=== PATIENT | female | born 1960 | race Caucasian/White ===

== ENCOUNTER → 2018-01-15 13:12 | Outpatient (CLI) | payer OTHER, SELFPAY ==
--- NOTE | 2018-01-15 | DI.MRI.S_ITS ---
PROCEDURE: MR HEAD/BRAIN WO/W CON INDICATIONS: FACIAL SWELLING/FACIAL TINGLING TECHNIQUE: Noncontrast sagittal T1 spin echo, axial T2 fast spin echo, axial FLAIR, axial gradient echo, axial diffusion and ADC through the brain. Axial/sagittal/coronal 3-D CISS, thin-slice axial T1 spin echo with fat saturation through the skull base. After the administration of contrast, axial and coronal thin-slice T1 spin echo with fat saturation through the skull base, axial T1 spin echo with fat saturation through the brain. COMPARISON: None. FINDINGS: Image quality: Excellent. Trigeminal nerves: No inflammation or mass is seen. No adjacent aneurysm is identified. CSF spaces: Ventricles are normal in size and shape. No extra-axial fluid collections. Basal cisterns are patent. Brain: No intracranial bleeds or mass effects. No abnormal intracranial enhancement. Diffusion weighted images show no acute ischemic insults. Vill[place]-white matter interface is intact. Brainstem is normal. Normal intravascular flow voids are present. Skull and face: Calvarial marrow signal is normal. Orbits appear normal. Sinuses: Sinuses and mastoids appear clear except for concentric moderate mucosal thickening involving the maxillary sinuses slightly greater on the left than the right. No acute-appearing air-fluid level is associated, however.. IMPRESSION: No sign of skull base inflammation or mass, no cranial nerve lesion is identified. Concentric mucosal thickening is prominent involving the maxillary sinuses bilaterally slightly greater on the left than the right but there is no air-fluid level. Dictated by: Francesco Braga M.D. on 01/15/2018 at 14:25 Approved by: Francesco Braga M.D. on 01/15/2018 at 14:43
== END ==
PROVIDERS: Visit Provider Family Medicine
DX: R22.0 Localized swelling, mass and lump, head (principal); R20.2 Paresthesia of skin
CPT/HCPCS: 70553; A9579

== ENCOUNTER → 2021-04-23 07:33 | Outpatient (CLI) | payer OTHER, SELFPAY ==
[2021-04-23 08:27] LABS: Add Manual Diff / Slide Review NO; Basophils Absolute Auto 100 /uL (0-100); Basophils Percent Auto 1.2 % (0-2); Eosinophils Absolute Auto 200 /uL (0-450); Eosinophils Percent Auto 5.1 % (2-4); Hemoglobin 13.8 g/dL (12.0-16.0); Lymphocytes Absolute Auto 2100 /uL (1100-4500); Lymphocytes Percent Auto 43.8 % (25-40); Mean Corpuscular HGB Conc 33.7 % (30-36); Mean Corpuscular Hemoglobin 30.1 PG (26-34); Mean Corpuscular Volume 89.4 fL (80-100); Monocytes Absolute Auto 500 /uL (0-900); Neutrophils Absolute Auto 1900 /uL (1500-7000); Neutrophils Percent Auto 39.9 % (50-75); Platelet Count 238 X10^3/uL (150-400); Red Blood Cell Count 4.58 X10^6/uL (4.0-5.2); Red Cell Distribution Width 13.1 % (11.6-14.8); White Blood Cell Count 4.8 X10^3/uL (4.5-11.0)
[2021-04-23 08:46] LABS: Alanine Aminotransferase 17 IU/L (<35); Albumin 4.3 g/dL (3.5-5.0); Albumin Globulin Ratio 1.7 (1.0-2.8); Alkaline Phosphatase 44 U/L (38-126); Aspartate Aminotransferase 22 IU/L (14-36); BUN Creatinine Ratio 12.1 (6-22); Bilirubin Total 0.5 mg/dL (0.2-1.3); Blood Urea Nitrogen 8 mg/dL (7-17); Calcium 9.7 mg/dL (8.4-10.2); Carbon Dioxide 29 mmol/L (22-32); Chloride 106 mmol/L (98-107); Cholesterol 210 mg/dL (140-199); Estimated Glomerular Filt Rate > 60.0 mL/min (>60); Globulin 2.6 g/dL (1.7-4.1); Glucose 97 mg/dL (70-100); HDL Cholesterol 68 mg/dL (40-60); HEMOLYSIS < 15 (0-50); LDL Cholesterol Calculated 125 mg/dL (<100); Potassium 4.3 mmol/L (3.4-5.1); Sodium 140 mmol/L (137-145); Total Protein 6.9 g/dL (6.3-8.2); Triglycerides 85 mg/dL (35-150)
[2021-04-23 09:39] LABS: Vitamin B12 > 1000 pg/mL (239-931)
== END ==
PROVIDERS: Referring Provider Naturopath; Visit Provider Naturopath
DX: Z00.00 Encounter for general adult medical examination without abnormal findings (principal)
CPT/HCPCS: 36415; 80053; 80061; 82607; 85025

== ENCOUNTER → 2021-05-07 11:43 | Outpatient (CLI) | payer OTHER, SELFPAY ==
[2021-05-10 12:36] LABS: Fecal Immunochemical Test Negative (Negative)
== END ==
PROVIDERS: Referring Provider Naturopath; Visit Provider Naturopath
DX: Z00.00 Encounter for general adult medical examination without abnormal findings (principal)
CPT/HCPCS: 82274

== ENCOUNTER → 2021-05-24 07:44 | Outpatient (CLI) | payer OTHER, SELFPAY ==
--- NOTE | 2021-05-24 07:46 | DI.MG.S_ITS ---
BILATERAL DIGITAL SCREENING MAMMOGRAM 3D/2D WITH CAD: 05/24/2021 CLINICAL: Routine screening. Comparison is made to exams dated: 11/14/2017 mammogram and 11/27/2012 mammogram - out side. There are scattered fibroglandular elements in both breasts. Current study was also evaluated with a Computer Aided Detection (CAD) system. No significant masses, calcifications, or other findings are seen in either breast. There has been no significant interval change. IMPRESSION: NEGATIVE There is no mammographic evidence of malignancy. A 1 year screening mammogram is recommended. This exam was interpreted at Station ID: [id number]. NOTE: For mammograms, a report in lay terms will be sent to the patient. Approximately 15% of breast malignancies will not be visualized mammographically. In the management of a palpable breast mass, a negative mammogram must not discourage biopsy of a clinically suspicious lesion. Electronically Signed By: Dino harp/[email or web address]:05/24/2021 08:39:45 letter sent: Normal Exam ACR BI-RADS Category 1: Negative [id number]
== END ==
PROVIDERS: PCP Naturopath; Referring Provider Naturopath; Visit Provider Naturopath
DX: Z12.31 Encounter for screening mammogram for malignant neoplasm of breast (principal)
CPT/HCPCS: 77063; 77067